=== PATIENT | female | born 1940 | race Caucasian/White ===

== ENCOUNTER → 2020-07-01 09:31 | Outpatient (BNVA) | payer MEDICARE, SELFPAY | PROVIDERS: PCP Family Medicine; Visit Provider Podiatrist Foot & Ankle Surgery | DX: M21.6X2 Other acquired deformities of left foot (principal); M21.6X1 Other acquired deformities of right foot; M19.072 Primary osteoarthritis, left ankle and foot; M19.071 Primary osteoarthritis, right ankle and foot; M79.672 Pain in left foot; M79.671 Pain in right foot | CPT/HCPCS: 73630 ==